=== PATIENT | female | born 1980 | race Caucasian/White ===

== ENCOUNTER → 2017-12-04 | Outpatient (REF) | payer OTHER ==
[2017-12-05 14:56] LABS: CHLAMYDIA DNA AMPLIFICATION NEGATIVE (NEGATIVE); GC DNA AMPLIFICATION NEGATIVE (NEGATIVE)
== END ==
LOC: M SFHCLERA 19:17
DX: R30.0 Dysuria (principal)

== ENCOUNTER → 2018-11-07 | Outpatient (CLI) | payer OTHER ==
--- NOTE | 2018-11-07 11:29 | REP ---
Left humerus: Two views. History: Left arm pain. Findings: Two views of the left humerus demonstrate normal bones, joints, and soft tissues. No fracture or subluxation is seen. Impression: Negative radiographs of the left humerus. Electronically Signed by Jose Miguel Cheung MD 11/07/2018 11:21 A
--- NOTE | 2018-11-07 11:33 | REP ---
Left elbow series: Four views. History: Left arm pain. Findings: Four views of the left elbow show positive anterior posterior fat pad sign at the elbow consistent with joint effusion. There is a subtle bone fragment adjacent to the coronoid process of the proximal ulna on oblique image today. If the history is that of a trauma, this may reflect a chip fracture. It is not clearly acute radiographically may reflect prior trauma or degenerative calcification. No other evidence of fracture is seen. Impression: Positive fat pad sign indicative of a joint effusion. There is a bone fragment adjacent to the coronoid process of the proximal ulna which could be a fracture fragment or dystrophic calcification. These findings should be correlated with a history and physical exam findings. Electronically Signed by Jose Miguel Cheung MD 11/07/2018 11:24 A
== END ==
LOC: M LRY 10:54
PROVIDERS: ATTEND Physician Assistant
DX: R93.7 Abnormal findings on diagnostic imaging of other parts of musculoskeletal system (principal)

== ENCOUNTER → 2019-01-19 | Outpatient (CLI) | payer OTHER ==
--- NOTE | 2019-01-19 15:35 | REP ---
Left knee 6 years History: Pain and swelling There is no acute fracture or dislocation. The joint spaces are normal in appearance. Impression: There is no acute fracture or dislocation. Electronically Signed by Sohan Rothman MD 01/19/2019 03:26 P
== END ==
LOC: M LRY 14:34
PROVIDERS: ATTEND Nurse Practitioner Family
DX: M25.562 Pain in left knee (principal)